=== PATIENT | female | born 1970 | race Caucasian/White ===

== ENCOUNTER 2018-11-22 14:37 | Outpatient (REF) | payer MEDICAID, SELFPAY | END 2018-11-22 14:57 | LOC: LBN 14:37 | PROVIDERS: PCP Family Medicine; Visit Provider Nurse Practitioner | DX: R69 Illness, unspecified (principal) | CPT/HCPCS: 80053; 80061; 82306; 83721; 84443; 85025 ==

== ENCOUNTER 2018-12-01 15:42 | Outpatient (REF) | payer MEDICAID, SELFPAY ==
[2018-12-03 11:52] LABS: HIV-1/2 Ag & Ab Screen Negative (NEGAT); Hepatitis A Antibody IgM Negative (NEGAT); Hepatitis B Core Antibody Negative (NEGAT); Hepatitis B surface Ag Negative (NEGAT); Hepatitis C Ab w Rflx HCV PCR Negative (NEGAT)
[2018-12-03 12:33] LABS: Syphilis Serology (RPR) Negative (Negative)
[2018-12-03 13:42] LABS: Chlamydia Result Negative; GC Result Negative; Specimen Description URINE
== END 2018-12-01 16:02 ==
LOC: NCHCN 15:42
PROVIDERS: PCP Family Medicine; Visit Provider Family Medicine
DX: Z11.3 Encounter for screening for infections with a predominantly sexual mode of transmission (principal); Z11.4 Encounter for screening for human immunodeficiency virus [HIV]; Z91.89 Other specified personal risk factors, not elsewhere classified; Z11.59 Encounter for screening for other viral diseases
CPT/HCPCS: 86704; 86709; 86803; 87340; 87389; 87491; 87591; 86592

== ENCOUNTER 2020-04-27 16:43 | Outpatient (REF) | payer MEDICAID, SELFPAY ==
[2020-04-27 20:46] LABS: Bilirubin Negative (Negative); Blood Negative (Negative); Clarity Clear (Clear); Glucose Negative (Negative); Ketones Negative (Negative); Leukocyte Esterase Negative (Negative); Nitrite Negative (Negative); Urobilinogen 0.2 EU/dL (Up TO 0.2); pH 5.5 (5-8)
[2020-05-03 07:28] LABS: Benzoylecgonine Negative ng/mL (Cutoff: 50); Cocaine Negative ng/mL (Cutoff: 50); Cocaine Interpretation Negative.
[2020-05-04 03:08] LABS: 2-OH-Ethyl-Flurazepam Negative ng/mL (Cutoff: 100); 7-NH-Clonazepam Negative ng/mL (Cutoff: 100); 7-NH-Flunitrazepam Negative ng/mL (Cutoff: 50); Alpha OH-Alprazolam Negative ng/mL (Cutoff: 100); Alpha-OH-Triazolam Negative ng/mL (Cutoff: 100); Benzodiazepines Interpretation Negative.; Lorazepam Negative ng/mL (Cutoff: 100); Temazepam Negative ng/mL (Cutoff: 100)
== END 2020-04-27 17:03 ==
LOC: NCHCN 16:43
PROVIDERS: PCP Family Medicine; Visit Provider Nurse Practitioner Psychiatric/Mental Health
DX: F31.9 Bipolar disorder, unspecified (principal); Z51.81 Encounter for therapeutic drug level monitoring; Z79.899 Other long term (current) drug therapy
CPT/HCPCS: 80346; 80353; 81003

== ENCOUNTER 2020-06-12 17:24 | Outpatient (REF) | payer MEDICAID, SELFPAY | END 2020-06-12 17:44 | LOC: NCHCN 17:24 | PROVIDERS: PCP Family Medicine; Visit Provider Family Medicine | DX: Z11.3 Encounter for screening for infections with a predominantly sexual mode of transmission (principal) | CPT/HCPCS: 87491; 87591 ==